=== PATIENT | male | born 1970 | race Caucasian/White ===

== ENCOUNTER 2021-02-26 11:29 | Emergency (ER) | payer OTHER ==
[~2021-02-26] VITALS: Ht 177.8 cm; Wt 90.7 kg
[~2021-02-26 11:29] MED LIST: ACETAMINOPHEN-1 EAC1 PO; ALBUTEROL INHAL17 GM IH; AUGMENTIN 875875 MG PO; AZITHROMYCIN 2250 MG PO; IBUPROFEN 800800 M1 PO; OSELB75 PO; PROAIR HFA8.5 GM INH; PROMETHAZINE D480 ML PO; VICODIN 5-5001 EACH PO
[2021-02-26 13:34] LABS: URINE BILIRUBIN NEGATIVE (Negative); URINE BLOOD NEGATIVE (Negative); URINE COLOR YELLOW; URINE GLUCOSE-RANDOM NEGATIVE (Negative); URINE KETONES NEGATIVE (Negative); URINE LEUKOCYTES-REFLEX TRACE (Negative); URINE NITRITE-REFLEX NEGATIVE (Negative); URINE PROTEIN NEGATIVE (Negative); URINE SPECIFIC GRAVITY <= 1.005 (1.005-1.030); URINE UROBILINOGEN 0.2 E.U./dl (0.2-1.0)
[2021-02-26 13:37] LABS: URINE CLARITY HAZY
[2021-02-26 14:01] LABS: BACTERIA-REFLEX 1-9 Few /HPF (None Seen); CASTS None Seen /LPF (None Seen); CRYSTALS None Seen /LPF (None Seen); SQUAMOUS 0-3 Few /LPF (0-3); URINE RBC 0-2 Rare /HPF (0-2); URINE WBC-REFLEX 0-5 Rare /HPF (0-5)
[2021-02-26 14:07] LABS: ABSOLUTE BASOPHILS 0.1 thou/uL (0.0-0.2); ABSOLUTE EOSINOPHILS 0.3 thou/uL (0.0-0.7); ABSOLUTE MONOCYTES 0.6 thou/uL (0.0-1.2); ABSOLUTE NEUTROPHILS 4.3 thou/uL (1.6-8.1); EOSINOPHILS 4.3 %; HEMATOCRIT 44.9 % (42.0-52.0); HEMOGLOBIN 15.7 gm/dL (14.0-18.0); LYMPHOCYTES 27.2 %; MCH 32.6 pg (26.0-34.0); MCHC 35.1 g/dL (28.0-37.0); MCV 93.1 fL (80.0-100.0); MPV 8.9 fl. (7.2-11.1); NUCLEATED RBCS 0 /100WBC; PLATELET COUNT* 144 thou/uL (150-400); POLYS 59.5 %; RBC 4.82 mil/uL (4.50-6.00); RDW-CV 12.8 % (10.5-14.5); WBC 7.3 thou/uL (4.0-11.0)
[2021-02-26 14:15] LABS: POTASSIUM 4.6 mmol/L (3.5-5.1)
[2021-02-26 14:19] LABS: TOTAL BILIRUBIN 0.7 mg/dL (<0.1-1.0); TOTAL PROTEIN 7.3 g/dL (6.4-8.2)
[2021-02-26] MEDS ORDERED: APAP W/CODEINE1 TA2 PO (14:48)
[2021-02-26 14:57] VITALS: BP 118/95
--- NOTE | 2021-02-26 17:18 | EKG ---
[place] [address] ELECTROCARDIOGRAM REPORT Name: KIMBERLY SANCHEZ Room: [facility]#: [id number] Admission: 02/26/21 Attend Phys: Discharge: 02/26/21 Date of : 66 Date of Service: 02/26/21 1213 Report #: [id number] THIS REPORT FOR: //name// [facility] ED Test Date: 2021-02-26 Test Time: 12:13:45 Pat Name: KIMBERLY SANCHEZ Department: Room: Gender: Attending Psychiatrist: [facility] : 1970 Requested By: Connor Wharton Order Number: [id number] Aniyah MD: Willam Castrejon Measurements Intervals [place] Rate: 73 P: 61 RI: 143 QRS: 60 QRSD: 99 T: 44 QT: 368 QTc: 406 Interpretive Statements Sinus rhythm Compared to ECG 03/04/2011 22:54:15 No significant changes Electronically Signed On 02-26-2021 17:18:14 CDT by Willam Castrejon [email or web address] <ELECTRONICALLY SIGNED> By: Willam Castrejon MD, MERGED WITH [facility] 02/26/21 1718 12 12 Willam Castrejon MD, MERGED WITH [facility] /EPI
== END 2021-02-26 14:58 | disposition home or self-care (01) ==
LOC: M.ERS 11:29
PROVIDERS: Physician Assistant
DX: R10.84 Generalized abdominal pain (principal); Z88.1 Allergy status to other antibiotic agents; Z90.89 Acquired absence of other organs; Z90.49 Acquired absence of other specified parts of digestive tract